=== PATIENT | female | born 1990 | race African-American/Black ===

== ENCOUNTER 2019-08-25 18:12 | Inpatient (IN) | payer MEDICAID ==
[~2019-08-25] VITALS: Ht 154.9 cm; Wt 52.6 kg
[2019-08-25 20:39] LABS: CLARITY URINE CLEAR (CLEAR); COLOR URINE YELLOW (YELLOW); KETONES URINE 3+ (NEGATIVE); LEUKOCYTE ESTERASE URINE 3+ (NEGATIVE); NITRITE URINE NEGATIVE (NEGATIVE); OCCULT BLOOD URINE NEGATIVE (NEGATIVE); PROTEIN URINE NEGATIVE (NEGATIVE); SPECIFIC GRAVITY URINE 1.008 (1.005-1.030)
[2019-08-25 20:43] LABS: BASOPHILS % 0.3 % (0.0-2.0); EOSINOPHILS % 0.1 % (0.0-5.0); HEMATOCRIT. 27.5 % (36.0-48.0); LYMPHOCYTES % 12.2 % (20.0-50.0); MEAN CORPUSCULAR HEMOGLOBIN 27.4 pg (28.0-32.0); MEAN CORPUSCULAR VOLUME 83.6 fL (81.0-99.0); MEAN PLATELET VOLUME 7.4 fl (7.4-10.4); MONOCYTES % 7.2 % (2.0-8.0); NEUTROPHILS % 80.2 % (40.0-76.0); PLATELET 480 x1000/uL (130-400); RED BLOOD CELL COUNT 3.29 mill/uL (4.2-5.4); RED CELL DISTRIBUTION WIDTH 15.7 % (11.6-14.6)
[2019-08-25 20:48] LABS: CHLORIDE 109 mEq/L (98-107)
[2019-08-25] MEDS: ONDANSETRON HCL 4MG/2ML INJ IV PRN (21:32)
[2019-08-25] MEDS ORDERED: BETAMETHASONE ACET/BETAMET 30 MG/5 ML VIAL IM ONE (22:15)
[2019-08-25] MEDS ORDERED: CEFAZOLIN 2,000 MG in DEXT 5% WATER 100 ML IV NR (22:30)
[2019-08-25] MEDS ORDERED: TERBUTALINE SULFATE 1MG/ML VIAL SUBCUT PRN (22:33)
[2019-08-25] MEDS: DEXT 5%/LACTATED RINGERS 1,000 ML IV SCH (22:44)
[2019-08-25] MEDS: TERBUTALINE SULFATE 1MG/ML VIAL SUBCUT PRN ×2 (23:02→23:38)
[2019-08-26] MEDS ORDERED: DIPHENHYDRAMINE 50MG/ML VIAL IV NR (00:30)
[2019-08-26] MEDS: TERBUTALINE SULFATE 1MG/ML VIAL SUBCUT PRN (01:04)
[2019-08-26] MEDS ORDERED: CITRIC ACID/SODIUM CITRATE SOLN 30ML UDC PO NR (01:15)
[2019-08-26] MEDS: ONDANSETRON HCL 4MG/2ML INJ IV PRN (03:01)
[2019-08-26 04:08] LABS: *BARBITURATES SCREEN URINE NEGATIVE (NEGATIVE); *BENZODIAZEPINES SCREEN URINE NEGATIVE (NEGATIVE); *COCAINE SCREEN URINE NEGATIVE (NEGATIVE); METHADONE URINE SCREEN NEGATIVE (NEGATIVE); OPIATES URINE SCREEN NEGATIVE (NEGATIVE); PHENCYCLIDINE URINE SCREEN NEGATIVE (NEGATIVE)
[2019-08-26 04:09] LABS: *AMPHETAMINES SCREEN URINE PRESUMTIVE POSITIVE (NEGATIVE); CANNABINOID URINE SCREEN PRESUMTIVE POSITIVE (NEGATIVE)
[2019-08-26] MEDS: DEXT 5%/LACTATED RINGERS 1,000 ML IV SCH (04:36)
[2019-09-03 06:07] LABS: AMPHETAMINE CONF URINE Positive (.); CANNABINOID CONFIRMATION URINE Positive (.)
== END 2019-08-26 11:10 | disposition home or self-care (01) | DRG 566 ==
LOC: 8 EST LDRP 18:12 → OBSVTOIN 18:12 → UNDODISIN 08-26 11:10
PROVIDERS: ADMIT Obstetrics & Gynecology; ATTEND Obstetrics & Gynecology
DX: O36.8330 Maternal care for abnormalities of the fetal heart rate or rhythm, third trimester, not applicable or unspecified (principal); O34.211 Maternal care for low transverse scar from previous cesarean delivery; Z3A.37 37 weeks gestation of pregnancy; Z53.29 Procedure and treatment not carried out because of patient's decision for other reasons
CPT/HCPCS: 36415; 76805; 76818; 80053; 80305; 80307; 80349; 81003; 82962; 85025; 96360; 96365; 96372; 99281; J0690; J0702; J1200; J2405; J3105; J7060

== ENCOUNTER 2019-08-28 02:44 | Inpatient (IN) | payer MEDICAID ==
[~2019-08-28] VITALS: Ht 154.9 cm; Wt 52.6 kg
[2019-08-28] MEDS ORDERED: PNV1TABL50 PO (03:09)
[2019-08-28] MEDS ORDERED: FERR325T6 PO (03:09)
[2019-08-28] MEDS ORDERED: DEXT 5%/LR + PITOCIN 20UNITS/L 1,000 ML IV SCH (03:20)
[2019-08-28] MEDS ORDERED: METHYLERGONOVINE MALEATE 0.2 MG/ML IM PRN (03:30)
[2019-08-28] MEDS ORDERED: TERBUTALINE SULFATE 1MG/ML VIAL SUBCUT NR (03:30)
[2019-08-28] MEDS ORDERED: MISOPROSTOL 100MCG TABLET VG SCH (03:30)
[2019-08-28] MEDS ORDERED: NALOXONE HCL 0.4 MG/ML 1ML VIAL IM PRN (03:30)
[2019-08-28] MEDS ORDERED: CARBOPROST TROMETHAMINE 250 MCG/ML AMPUL IM PRN (03:30)
[2019-08-28 05:19] LABS: BASOPHILS % 0.3 % (0.0-2.0); HEMATOCRIT. 28.2 % (36.0-48.0); HEMOGLOBIN. 9.3 g/dL (12.0-16.0); LYMPHOCYTES % 20.1 % (20.0-50.0); MEAN CORPUSCULAR HEMOGLOBIN 27.3 pg (28.0-32.0); MEAN PLATELET VOLUME 7.5 fl (7.4-10.4); MONOCYTES % 10.5 % (2.0-8.0); NEUTROPHILS % 69.1 % (40.0-76.0); PLATELET 495 x1000/uL (130-400); RED CELL DISTRIBUTION WIDTH 16.4 % (11.6-14.6)
[2019-08-28 05:39] LABS: CLARITY URINE CLEAR (CLEAR); COLOR URINE YELLOW (YELLOW); KETONES URINE 4+ (NEGATIVE); LEUKOCYTE ESTERASE URINE 2+ (NEGATIVE); NITRITE URINE NEGATIVE (NEGATIVE); OCCULT BLOOD URINE NEGATIVE (NEGATIVE); PROTEIN URINE NEGATIVE (NEGATIVE); SPECIFIC GRAVITY URINE 1.011 (1.005-1.030)
[2019-08-28] MEDS: LACTATED RINGERS 1,000 ML IV SCH ×2 (05:46→06:37)
[2019-08-28 05:48] LABS: PARTIAL THROMBOPLASTIN TIME 23.5 sec (23.4-31.0); PROTHROMBIN TIME 10.2 sec (9.6-11.0)
[2019-08-28 05:53] LABS: *AMPHETAMINES SCREEN URINE NEGATIVE (NEGATIVE); *BARBITURATES SCREEN URINE NEGATIVE (NEGATIVE); *BENZODIAZEPINES SCREEN URINE NEGATIVE (NEGATIVE); *COCAINE SCREEN URINE NEGATIVE (NEGATIVE); METHADONE URINE SCREEN NEGATIVE (NEGATIVE); OPIATES URINE SCREEN NEGATIVE (NEGATIVE); PHENCYCLIDINE URINE SCREEN NEGATIVE (NEGATIVE)
[2019-08-28] MEDS ORDERED: CITRIC ACID/SODIUM CITRATE SOLN 30ML UDC PO NR (06:00)
[2019-08-28] MEDS ORDERED: MORPHINE SULFATE/PF 1MG/ML 10ML AMP ONE (06:05)
[2019-08-28] MEDS ORDERED: OXYTOCIN 10 UNITS/ML 1ML ONE ×2 (06:05→07:34)
[2019-08-28] MEDS ORDERED: ONDANSETRON HCL 4MG/2ML INJ ONE (06:05)
[2019-08-28] MEDS ORDERED: PHENYLEPHRINE HCL 10 MG/ML 1ML (IV VIAL) IV ONE (06:05)
[2019-08-28] MEDS ORDERED: CEFAZOLIN SODIUM 1000MG/VIAL ONE (06:05)
[2019-08-28] MEDS ORDERED: EPHEDRINE SULFATE 50MG/ML VIAL ONE (06:05)
[2019-08-28] MEDS ORDERED: FENTANYL CITRATE/PF 50MCG/ML 2ML VIAL ONE (06:05)
[2019-08-28] MEDS ORDERED: SODIUM CHLORIDE 0.9% 10ML VIAL ONE ×2 (06:09→06:14)
[2019-08-28 06:27] LABS: CANNABINOID URINE SCREEN PRESUMTIVE POSITIVE (NEGATIVE)
[2019-08-28 07:40] LABS: HEPATITIS B SURFACE ANTIGEN NEGATIVE
[2019-08-28] MEDS ORDERED: METOCLOPRAMIDE HCL 10MG/2ML VIAL ONE (09:20)
[2019-08-28] MEDS ORDERED: BISACODYL 10MG SUPP PR PRN (09:30)
[2019-08-28] MEDS ORDERED: IBUPROFEN 400MG TABLET PO PRN ×2 (09:30→17:23)
[2019-08-28] MEDS ORDERED: RHO(D) IMMUNE GLOBULIN 300 MCG/SYR IM PRN (09:30)
[2019-08-28] MEDS ORDERED: KETOROLAC 30MG/ML VIAL IV PRN (09:30)
[2019-08-28] MEDS ORDERED: DIPHENHYDRAMINE 50MG/ML VIAL IV PRN (11:00)
[2019-08-28] MEDS ORDERED: MEPERIDINE HCL/PF 25MG/ML CPJ IV PRN (11:00)
[2019-08-28] MEDS ORDERED: METOCLOPRAMIDE HCL 10MG/2ML VIAL IV PRN (11:00)
[2019-08-28] MEDS ORDERED: ONDANSETRON HCL 4MG/2ML INJ IV PRN (11:00)
[2019-08-28 11:40] VITALS: BP 111/68
[2019-08-28 12:20] VITALS: BP 100/55
[2019-08-28] MEDS: DEXT 5%/LR + PITOCIN 20UNITS/L 1,000 ML IV SCH ×2 (12:40→20:42)
[2019-08-28 14:00] VITALS: BP 112/71
[2019-08-28] MEDS ORDERED: MEASLES,MUMPS&RUBELLA VACCINE 1 VIAL SUBCUT ONE (14:00)
[2019-08-28 20:00] VITALS: BP 100/67
[2019-08-29] VITALS: BP 106/54
[2019-08-29 04:00] VITALS: BP 98/52
[2019-08-29] MEDS: IBUPROFEN 800MG TABLET PO PRN ×3 (04:05→22:02)
[2019-08-29 07:17] LABS: BASOPHILS % 0.3 % (0.0-2.0); EOSINOPHILS % 0.1 % (0.0-5.0); HEMATOCRIT. 30.2 % (36.0-48.0); LYMPHOCYTES % 12.5 % (20.0-50.0); MEAN CORPUSCULAR HEMOGLOBIN 27.1 pg (28.0-32.0); MEAN CORPUSCULAR VOLUME 81.7 fL (81.0-99.0); MEAN PLATELET VOLUME 7.1 fl (7.4-10.4); MONOCYTES % 9.9 % (2.0-8.0); NEUTROPHILS % 77.2 % (40.0-76.0); PLATELET 480 x1000/uL (130-400); RED CELL DISTRIBUTION WIDTH 16.2 % (11.6-14.6)
[2019-08-29 08:00] VITALS: BP 109/67
[2019-08-29 16:00] VITALS: BP 116/64
[2019-08-29 20:00] VITALS: BP 107/77
[2019-08-30 00:01] VITALS: BP 105/56
[2019-08-30 04:00] VITALS: BP 105/76
[2019-08-30] MEDS: IBUPROFEN 800MG TABLET PO PRN ×2 (04:45→14:36)
[2019-08-30 08:00] VITALS: BP 113/54
[2019-08-30 10:46] LABS: BASOPHILS % 0.4 % (0.0-2.0); EOSINOPHILS % 0.4 % (0.0-5.0); HEMATOCRIT. 26.4 % (36.0-48.0); LYMPHOCYTES % 15.4 % (20.0-50.0); MEAN CORPUSCULAR HEMOGLOBIN 27.5 pg (28.0-32.0); MEAN CORPUSCULAR VOLUME 81.2 fL (81.0-99.0); MEAN PLATELET VOLUME 7.1 fl (7.4-10.4); MONOCYTES % 8.9 % (2.0-8.0); NEUTROPHILS % 74.9 % (40.0-76.0); PLATELET 470 x1000/uL (130-400); RED BLOOD CELL COUNT 3.26 mill/uL (4.2-5.4); RED CELL DISTRIBUTION WIDTH 16.3 % (11.6-14.6)
[2019-08-30 16:00] VITALS: BP_SYST 105; BP_SYST 109; BP_DIAS 57; BP_DIAS 64
[2019-08-30 21:00] VITALS: BP 110/53
[2019-08-30] MEDS: ONDANSETRON 4MG ODT PO PRN (21:19)
[2019-08-31 04:45] VITALS: BP 105/70
[2019-08-31] MEDS: ONDANSETRON 4MG ODT PO PRN (04:55)
[2019-08-31] MEDS ORDERED: IBUP-2030 PO (07:11)
[2019-08-31 07:54] VITALS: BP 121/73
[2019-08-31] MEDS: IBUPROFEN 800MG TABLET PO PRN (08:58)
[2019-09-03 04:08] LABS: CANNABINOID CONFIRMATION URINE Positive (.)
== END 2019-08-31 14:10 | disposition home or self-care (01) | DRG 540 ==
LOC: OBSVTOIN 02:44 → 8 EST LDRP 02:44 → 8EST 11:31
PROVIDERS: ADMIT Obstetrics & Gynecology; ATTEND Obstetrics & Gynecology
PROC: 10D00Z1 Extraction of Products of Conception, Low, Open Approach (ICD-10-PCS; principal; 2019-08-28)
DX: O34.211 Maternal care for low transverse scar from previous cesarean delivery (principal); O99.52 Diseases of the respiratory system complicating childbirth; O99.334 Smoking (tobacco) complicating childbirth; O99.02 Anemia complicating childbirth; J45.909 Unspecified asthma, uncomplicated; D64.9 Anemia, unspecified; O69.81X0 Labor and delivery complicated by cord around neck, without compression, not applicable or unspecified; O77.0 Labor and delivery complicated by meconium in amniotic fluid; Z3A.37 37 weeks gestation of pregnancy; Z37.0 Single live birth
CPT/HCPCS: 36415; 80305; 80349; 81003; 82962; 85025; 86592; 86703; 86762; 86850; 86900; 87340; 88307; 90707; 99281; J0690; J2274; J2370; J2405; J2590; J2765; J3010; J3105; J3490; Q0162

== ENCOUNTER 2019-12-01 23:03 | Emergency (ER) | payer MEDICAID ==
[~2019-12-01] VITALS: Ht 147.3 cm; Wt 41.1 kg
[~2019-12-01 23:03] MED LIST: FERR325T6 PO; IBUP-2030 PO; PNV1TABL50 PO
[2019-12-01 23:37] VITALS: BP 123/82
[2019-12-02] MEDS ORDERED: ACETAMINOPHEN 325MG TABLET PO ONE (00:15)
== END 2019-12-02 01:26 | disposition home or self-care (01) ==
LOC: ER 23:03
DX: S00.03XA Contusion of scalp, initial encounter (principal); J45.909 Unspecified asthma, uncomplicated; F15.10 Other stimulant abuse, uncomplicated; F12.10 Cannabis abuse, uncomplicated; Z98.890 Other specified postprocedural states; Y00.XXXA Assault by blunt object, initial encounter; Y07.03 Male partner, perpetrator of maltreatment and neglect; Y93.89 Activity, other specified; Y92.018 Other place in single-family (private) house as the place of occurrence of the external cause
CPT/HCPCS: 81025; 99284

== ENCOUNTER 2020-01-08 01:04 | Emergency (ER) | payer MEDICAID ==
[~2020-01-08] VITALS: Ht 147.3 cm; Wt 48.0 kg
[2020-01-08 07:30] VITALS: BP 148/80
[2020-01-08] MEDS ORDERED: PRENATAL VIT/FE FUMARATE/FA TABLET PO SCH (09:00)
[2020-01-08] MEDS ORDERED: ACETAMINOPHEN 325MG TABLET PO ONE (09:00)
== END 2020-01-08 09:42 | disposition home or self-care (01) ==
LOC: ER 01:10
DX: R04.0 Epistaxis (principal); F12.10 Cannabis abuse, uncomplicated; J45.909 Unspecified asthma, uncomplicated; Z79.899 Other long term (current) drug therapy; Z98.890 Other specified postprocedural states
CPT/HCPCS: 36415; 81025; 84702; 99285

== ENCOUNTER 2020-07-27 03:09 | Emergency (ER) | payer MEDICAID ==
[~2020-07-27] VITALS: Ht 152.4 cm; Wt 57.2 kg
[2020-07-27] MEDS ORDERED: ACETAMINOPHEN 325MG TABLET PO SCH (04:30)
[2020-07-27] MEDS ORDERED: DIPHENHYDRAMINE 50MG/ML VIAL IV SCH (04:30)
[2020-07-27] MEDS ORDERED: METOCLOPRAMIDE HCL 10MG/2ML VIAL IV SCH (04:30)
[2020-07-27 05:15] LABS: HEMOGLOBIN. 7.5 g/dL (12.0-16.0); MEAN CORPUSCULAR HEMOGLOBIN 21.4 pg (28.0-32.0); MEAN CORPUSCULAR VOLUME 68.5 fL (81.0-99.0); RED BLOOD CELL COUNT 3.51 mill/uL (4.2-5.4); RED CELL DISTRIBUTION WIDTH 18.3 % (11.6-14.6)
[2020-07-27 05:16] LABS: BASOPHILS % 0.3 % (0.0-2.0); EOSINOPHILS % 0.4 % (0.0-5.0); LYMPHOCYTES % 19.2 % (20.0-50.0); MEAN PLATELET VOLUME 6.2 fl (7.4-10.4); MONOCYTES % 14.8 % (2.0-8.0); NEUTROPHILS % 65.3 % (40.0-76.0); PLATELET 485 x1000/uL (130-400)
[2020-07-27 05:17] LABS: PLATELET ESTIMATE NORMAL
[2020-07-27 05:19] LABS: CHLORIDE 106 mEq/L (98-107); ETHANOL BLOOD < 10 mg/dL
[2020-07-27 05:29] LABS: CLARITY URINE CLOUDY (CLEAR); COLOR URINE YELLOW (YELLOW); KETONES URINE NEGATIVE (NEGATIVE); LEUKOCYTE ESTERASE URINE 2+ (NEGATIVE); NITRITE URINE NEGATIVE (NEGATIVE); OCCULT BLOOD URINE NEGATIVE (NEGATIVE); PH URINE 6.5 (4.5-8.0); PROTEIN URINE 1+ (NEGATIVE)
[2020-07-27 05:39] LABS: *BARBITURATES SCREEN URINE NEGATIVE (NEGATIVE); *BENZODIAZEPINES SCREEN URINE NEGATIVE (NEGATIVE)
[2020-07-27 05:41] LABS: *COCAINE SCREEN URINE NEGATIVE (NEGATIVE); METHADONE URINE SCREEN NEGATIVE (NEGATIVE); OPIATES URINE SCREEN NEGATIVE (NEGATIVE); PHENCYCLIDINE URINE SCREEN NEGATIVE (NEGATIVE)
[2020-07-27 05:42] LABS: *AMPHETAMINES SCREEN URINE PRESUMTIVE POSITIVE (NEGATIVE); CANNABINOID URINE SCREEN PRESUMTIVE POSITIVE (NEGATIVE)
[2020-07-27] MEDS ORDERED: SODIUM CHLORIDE 0.9% 1,000 ML IV ONE (06:45)
[2020-07-27] MEDS ORDERED: MORPHINE SULFATE 4 MG/ML CPJ (NOT FOR IM USE) IV ONE (07:15)
[2020-07-27] MEDS ORDERED: ACETAMINOPHEN 325MG TABLET PO ONE ×3 (10:30→22:45)
[2020-07-27] MEDS ORDERED: ENOXAPARIN 60MG/0.6ML SYR SUBCUT ONE (12:15)
[2020-07-27] MEDS ORDERED: METOCLOPRAMIDE HCL 10MG/2ML VIAL IV ONE (17:45)
[2020-07-28] MEDS: ENOXAPARIN 60MG/0.6ML SYR SUBCUT SCH ×2 (01:57→13:46)
[2020-07-28] MEDS ORDERED: ACETAMINOPHEN 325MG TABLET PO ONE (10:00)
[2020-07-28 14:28] VITALS: BP 102/58
== END 2020-07-28 14:21 | disposition short-term general hospital (02) ==
LOC: ER 03:09 → CANBEDREQ 07-28 16:17
DX: O22.5 Cerebral venous thrombosis in pregnancy (principal); O26.893 Other specified pregnancy related conditions, third trimester; J45.909 Unspecified asthma, uncomplicated; Z98.890 Other specified postprocedural states; Z3A.32 32 weeks gestation of pregnancy; Z75.1 Person awaiting admission to adequate facility elsewhere
CPT/HCPCS: 36415; 70450; 70544; 70553; 76805; 80053; 80305; 80320; 81003; 82248; 84702; 85025; 96361; 96372; 96374; 96375; 96376; 99285; J1650; J2270; J2765; J7030; Z7610; G0480